=== PATIENT | female | born 1980 | race Caucasian/White ===

== ENCOUNTER 2023-06-21 18:33 | Emergency (ER) | payer SELFPAY | END 2023-06-22 12:26 | disposition home or self-care (01) | LOC: ERS 18:33 | DX: F15.959 Other stimulant use, unspecified with stimulant-induced psychotic disorder, unspecified (principal); N39.0 Urinary tract infection, site not specified; F19.20 Other psychoactive substance dependence, uncomplicated; R00.0 Tachycardia, unspecified; I10 Essential (primary) hypertension; F17.290 Nicotine dependence, other tobacco product, uncomplicated; Z79.82 Long term (current) use of aspirin | CPT/HCPCS: 36415; 36416; 80053; 80306; 80307; 81001; 82550; 84443; 84703; 85025; 87086; 93005; 96361; 96374; J2060 ==